=== PATIENT | female | born 1985 | race Caucasian/White ===

== ENCOUNTER 2024-11-22 11:50 | Outpatient (OUT) | payer OTHER, SELFPAY ==
--- OUTSIDE RECORDS SUMMARY | 2013-09-01 06:30 | XMS_ITS | Continuity of Care Document ---
Author [facility] Address [address] [place] [address] [place] [address] Phone Care Team Providers Care Merchandise For Resale Purchasing Agent Name Role Phone Unavailable Unavailable Unavailable Allergies, Adverse Reactions, Alerts Substance Reaction Status Criticality latex Rash Active No Information Medications Medication Instructions Dosage Effective Dates (start - stop) Status Comments glucosamine-chondroiti n 500 mg-400 mg tablet - Active biotin 10 mg tablet - Active multivitamin tablet take 1 tablet by ora l route every day with food - Active Procedures Procedure Date OFFICE/OUTPATIENT VISIT, EST STREP A ASSAY W/OPTIC OFFICE/OUTPATIENT VISIT, EST OFFICE/OUTPATIENT VISIT, EST OFFICE/OUTPATIENT VISIT, EST OFFICE/OUTPATIENT VISIT, EST URINALYSIS, AUTO, W/O SCOPE OFFICE/OUTPATIENT VISIT, [facility] URINALYSIS, AUTO, W/O SCOPE Advance Directives Directive Yes / No Effective Date File Name No Information Encounters Encounter Description Practice Location Reason(s) For Visit Diagnoses Date Provider Providers Copied on Encounter OFFICE/OUTPA TIENT VISIT, [facility], [address] [place] [address], [id number] , [place] tel:[phone] [facility] sinus symptoms (acute) (chief complaint) Sinusitis No Information Referring Provider: Ganesh Chung, [address] [place], [address]. tel:[phone] OFFICE/OUTPA TIENT VISIT, [facility], [address] [place] [address], [place], [id number] , [place] tel:[phone] [facility] Headache (chief complaint) sore throat (chief complaint) ACUTE PHARYNGITISHead ache 4 Jose [facility]. [address] [facility] [address], [place], [place], [id number], [place]. tel:[phone] Referring Provider: Ganesh Chung, [address] [facility], [place], [address]. tel:[phone] OFFICE/OUTPA TIENT VISIT, [facility] [employer] [facility], [address] [place] [address] B, [place], [place], [id number] , [place] tel:[phone] [facility] No Information 4 No Information OFFICE/OUTPA TIENT VISIT, [facility] [employer] [employer] [facility], [address] [place] [address], [place], [place], [id number] , [place] tel:[phone] [facility] No Information 3 No Information OFFICE/OUTPA TIENT VISIT, [employer] [facility], [address] [place] [address] B, [place], [place], [id number] , [place] tel:[phone] [facility] No Information 3 No Information OFFICE/OUTPA TIENT VISIT, [email or web address] [facility], [address] [place] [address] B, [place], [place], [id number] , [place] tel:[phone] [facility] No Information 2 No Information Referring Provider: Ganesh Chung, [address] [facility], [place], [address]. tel:[phone] Family History Family Member Type Diagnosis Age At Onset No Information Payers Payer name Insurance type Covered alliance party ID Raul benson(s) [facility] CI [id number] [employer] CI [id number] Social History Type Description Quantity Date Captured Comments Alcohol Use Details Unknown Caffeine Use Details Unknown Tobacco Use Status No Information Smoking Status Never smoker Non-Smoking Tobacco Use Details : No Details Available : No Details Available Sex Female Vital Signs Date / Time: Height Weight BMI Pulse Rate Blood Pressure Temperature Respiratory Rate Body Surface Area Head Circumference Head Circ. Percentile Wt./[place]. Percentile BMI percentile Pulse Ox Inhaled Ox 10:42 AM 69.60 in 66.497 kg (146.60 lbs) 21.2 8 kg/m eter (2) 10:49 AM 67 /min 93/56 mm[Hg] 98.20 F Chief Complaint And Reason For Visit From encounter dated '09/01/2013 10:30'. sinus symptoms (acute) (chief complaint). Description: Onset: 3 Days. The problem has worsened. Thesymptoms are constant. Both sides are affected. Pertinent/initial symptoms include bloody sinus drainage, facial pain, facial pressure, purulent sinus drainage, sinus pain, sinus pressure and throbbing pain. Symptoms are not associated with tobacco use. Context additional comments: just here at [facility] yestur[facility]. Aggravating factors include leaning forward and lying down. Symptoms are not aggravated by smoke exposure. Symptoms are relieved by antihistamines, decongestants and pain medication. Associated symptoms include cough, headache, nasal drainage and rhinorrhea. Pertinent negatives include nasal obstruction. Associated symptoms additional comments: ears plugged. Reason For Referral Reason For Referral No Information History Of Present Illness Encounter Date Complaint History Of Prese nt Illness sinus symptoms (acute) Onset: 3 Days. The problem has worsened. The symptoms are constant. Both sides are affected. Pertinent/initial symptoms include bloody sinus drainage, facial pain, facial pressure, purulent sinus drainage, sinus pain, sinus pressure and throbbing pain. Symptoms are not associated with tobacco use. Context additional comments: just here at [facility] yesturday. Aggravating factors include leaning forward and lying down. Symptoms are not aggravated by smoke exposure. Symptoms are relieved by antihistamines, decongestants and pain medication. Associated symptoms include cough, headache, nasal drainage and rhinorrhea. Pertinent negatives include nasal obstruction. Associated symptoms additional comments: ears plugged. Headache (comments) Pt took pain reliever (unsure of tylenol or motrin) about 1 1/2 hours ago. Pt is not sure if headaches are when she has fevers, has not paid attention. Pt states her throat pain is worse at night. Between throat pain and headache pt states throat pain is worse if asked at night and she would say headache is worse in the daytime. Coworker had similar symptoms. Appetite is decent, but less than normal. sore throat Pertinent negati ves include fever. Functional Status Date Functional Assessmen t No Information Instructions Date Instruction Additional Infor serg see plan detail Related to ACUTE PHARYNGITIS Assessments Type Assessment Date assessment Sinusitis Patient Care Teams Name Effective Dates (start - stop) Status Members No Information
--- OUTSIDE RECORDS SUMMARY | 2024-11-22 11:56 | XMS_ITS | Clinical Summary ---
Author Organization [facility] Address [id number] [address] [place] [address] Care Team Providers Care Activity Leader Name Role Phone Unavailable Primary Care Provider Unavailabl e Social History Tobacco Use Types Packs/Day Years Used Date Smoking Tobacco: Never Assessed Childcare Answer Date Recorded Childcare Unknown 04/21/2020 Employment Answer Date Recorded Employment Unknown 04/21/2020 Purpose - Life Answer Date Recorded Purpose and direction in life Unknown Comments Unknown Sex and Gender Information Value Date Recorded Sex Assigned at Not on file Legal Sex Female 7:13 PM EDT Gender Identity Not on file Sexual Orientation Not on file Plan of Treatment Not on file Medical Devices Not on file
[2024-11-22 12:45] LABS: Hematocrit 41.3 % (36.0-48.0); Hemoglobin 13.8 g/dL (12.0-16.0); Immature Granulocytes Abs Auto 0.03 10^3/uL (0.00-0.03); Immature Granulocytes Pct Auto 0.3 % (0.0-0.5); Lymphocytes Absolute Auto 2.1 10^3/uL (1.2-3.8); Mean Corpuscular HGB Conc 33.4 g/dL (29.9-35.2); Mean Corpuscular Hemoglobin 28.8 pg (26.7-34.0); Mean Corpuscular Volume 86.2 fL (81.0-99.0); Platelet Count 337 10^3/uL (150-450); Red Blood Count 4.79 10^6/uL (4.20-5.40); White Blood Count 9.4 10^3/uL (4.0-11.0)
[2024-11-22 13:18] LABS: Iron 125.0 ug/dL (50.0-170.0)
[2024-11-22 13:29] LABS: Alanine Aminotransferase 19 U/L (14-59); Albumin Globulin Ratio 1.4; Albumin Level 4.4 g/dL (3.4-5.0); Alkaline Phosphatase 48 U/L (46-116); Anion Gap 11.9; Aspartate Amino Transferase 20 U/L (15-37); Blood Urea Nitrogen 15.0 mg/dL (7.0-18.0); Calcium 9.0 mg/dL (8.5-10.1); Carbon Dioxide 27.8 mmol/L (21.0-32.0); Chloride 106 mmol/L (98-107); Cholesterol 159 mg/dL (<=200); Estimated GFR (African America >60 (>=60 mL/min/1.73m^2); Estimated GFR (Non-African Ame >60 (>=60 mL/min/1.73m^2); Free T3 2.36 pg/mL (2.18-3.98); Globulin 3.2 g/dL; Glucose 88 mg/dL (74-106); HDL Cholesterol 55 mg/dL (40-60); Potassium 3.7 mmol/L (3.5-5.1); Sodium 142 mmol/L (136-145); Thyroid Stimulating Hormone 1.335 uIU/mL (0.358-3.740); Total Protein 7.6 g/dL (6.4-8.2); Triglycerides 62 mg/dL (<=150); VLDL CHOLESTEROL 12.4 mg/dL
[2024-11-23 08:09] LABS: FSH 7.8 mIU/mL (.)
== END 2024-11-22 11:51 | disposition home or self-care (01) ==
LOC: LAB 11:55
PROVIDERS: PCP Family Medicine; Visit Provider Family Medicine
DX: Z00.00 Encounter for general adult medical examination without abnormal findings (principal)
CPT/HCPCS: 36415; 80053; 80061; 83001; 83036; 83540; 84436; 84443; 84481; 85025

== ENCOUNTER 2024-12-04 10:49 | Outpatient (OUT) | payer OTHER, SELFPAY ==
--- NOTE | 2024-12-04 10:51 | MM_ITS ---
Patient Name: SARAHY SAAB MR#: [id number] : 1985 Exam Date: 12/04/2024 Ordering Doctor: DR MARYAM STEVENS . RADIOLOGY REPORT PROCEDURE: MM TOMOSYNTHESIS SCREENING BI COMPARISON: None. INDICATIONS: Screening Calculator Name NCI Breast Cancer Risk Assessment Tool 5 Year Breast Cancer Risk 0.40% Lifetime Breast Cancer Risk 8.10% Personal Breast Cancer No Personal Ovarian Cancer No Treatments None Family Cancers Grandmother-maternal with breast cancer at age ~64; Grandfather-paternal with prostate cancer at age 88; Grandfather-paternal with bladder cancer at age 65. LOCATION: [facility] BREAST COMPOSITION: The breasts are heterogeneously dense, which may obscure small masses. FINDINGS: DIAGNOSTIC CATEGORY 1--NEGATIVE. RIGHT BREAST: No significant suspicious finding. LEFT BREAST: No significant suspicious finding. RECOMMENDATIONS: ROUTINE MAMMOGRAM AND CLINICAL EVALUATION IN 12 MONTHS. Dictated by: Osvaldo Lacy DO on 12/04/2024 at 15:26 Approved by: Osvaldo Lacy DO on 12/04/2024 at 15:27
== END 2024-12-04 10:50 | disposition home or self-care (01) ==
LOC: MAMMO 10:49
PROVIDERS: PCP Family Medicine; Visit Provider Family Medicine
DX: Z12.31 Encounter for screening mammogram for malignant neoplasm of breast (principal); Z80.3 Family history of malignant neoplasm of breast; Z80.52 Family history of malignant neoplasm of bladder; Z80.42 Family history of malignant neoplasm of prostate
CPT/HCPCS: 77063; 77067